=== PATIENT | female | born 1970 | race Caucasian/White ===

== ENCOUNTER 2016-07-25 08:20 | Outpatient (CLI) ==
[2013-09-23 20:24] VITALS: BMI 26.6
== END 2016-07-25 08:21 | disposition home or self-care (01) ==
LOC: LAB 08:20
PROVIDERS: ATTEND Family Medicine
DX: E03.9 Hypothyroidism, unspecified (principal)
CPT/HCPCS: 36415; 84439; 84443

== ENCOUNTER 2018-02-01 16:07 | Outpatient (CLI) ==
[2017-01-23 12:44] VITALS: BMI 26.6
== END 2018-02-01 16:08 | disposition home or self-care (01) ==
LOC: LAB 16:07
PROVIDERS: ATTEND Family Medicine
DX: E03.9 Hypothyroidism, unspecified (principal); E04.1 Nontoxic single thyroid nodule; F98.8 Other specified behavioral and emotional disorders with onset usually occurring in childhood and adolescence; G44.209 Tension-type headache, unspecified, not intractable; R74.8 Abnormal levels of other serum enzymes; F41.1 Generalized anxiety disorder; K21.9 Gastro-esophageal reflux disease without esophagitis; R05 Cough; I10 Essential (primary) hypertension; Z86.39 Personal history of other endocrine, nutritional and metabolic disease; Z79.899 Other long term (current) drug therapy
CPT/HCPCS: 36415; 80053; 82248; 84439; 84443; 84480; 85025; 86376; 86800

== ENCOUNTER 2018-11-21 10:04 | Outpatient (CLI) ==
[2017-01-23 12:44] VITALS: BMI 26.6
== END 2018-11-21 10:05 | disposition home or self-care (01) ==
LOC: LAB 10:04
PROVIDERS: ATTEND Physician Assistant Medical
DX: G44.209 Tension-type headache, unspecified, not intractable (principal); F98.8 Other specified behavioral and emotional disorders with onset usually occurring in childhood and adolescence; I10 Essential (primary) hypertension; K21.9 Gastro-esophageal reflux disease without esophagitis; M54.42 Lumbago with sciatica, left side; E03.9 Hypothyroidism, unspecified
CPT/HCPCS: 36415; 80053; 80061; 84439; 84443; 84481; 85027